=== PATIENT | male | born 1975 | race African-American/Black ===

== ENCOUNTER 2021-09-28 10:55 | Emergency (ER) | payer MEDICAID ==
[~2021-09-28] VITALS: Ht 180.3 cm; Wt 101.0 kg
[2021-09-28] MEDS ORDERED: ASPIRIN 81MG TABLET PO ONE (11:15)
[2021-09-28] MEDS ORDERED: SODIUM CHLORIDE 0.9% 1,000 ML IV ONE (11:15)
[2021-09-28 11:53] LABS: BASOPHILS % 0.7 % (0.0-2.0); EOSINOPHILS % 1.9 % (0.0-5.0); HEMATOCRIT. 46.6 % (42.0-52.0); HEMOGLOBIN. 15.5 g/dL (14.0-18.0); LYMPHOCYTES % 33.4 % (20.0-50.0); MEAN CORPUSCULAR HEMOGLOBIN 28.3 pg (28.0-32.0); MEAN CORPUSCULAR VOLUME 85.5 fL (80.0-94.0); MEAN PLATELET VOLUME 10.3 fl (7.4-10.4); PLATELET 266 x1000/uL (130-400); RED BLOOD CELL COUNT 5.45 mill/uL (4.7-6.1); RED CELL DISTRIBUTION WIDTH 13.2 % (11.6-14.6)
[2021-09-28 11:57] LABS: CHLORIDE 108 mEq/L (98-107)
[2021-09-28 12:27] LABS: ETHANOL BLOOD < 10 mg/dL
[2021-09-28] MEDS ORDERED: DILTIAZEM HCL 5MG/ML 5ML VIAL IV ONE (12:30)
[2021-09-28 12:45] LABS: *AMPHETAMINES SCREEN URINE NEGATIVE (NEGATIVE); *BARBITURATES SCREEN URINE NEGATIVE (NEGATIVE); *BENZODIAZEPINES SCREEN URINE NEGATIVE (NEGATIVE); *COCAINE SCREEN URINE NEGATIVE (NEGATIVE); METHADONE URINE SCREEN NEGATIVE (NEGATIVE); OPIATES URINE SCREEN NEGATIVE (NEGATIVE)
[2021-09-28 12:46] LABS: CANNABINOID URINE SCREEN NEGATIVE (NEGATIVE); PHENCYCLIDINE URINE SCREEN NEGATIVE (NEGATIVE)
[2021-09-28] MEDS ORDERED: IOHEXOL-350 100 ML BOTTLE ONE (13:28)
[2021-09-28] MEDS ORDERED: DILTIAZEM HCL 30MG TABLET PO ONE (13:45)
[2021-09-28] MEDS ORDERED: APIX2.5T MT (15:33)
[2021-09-28 16:04] VITALS: BP 132/94
== END 2021-09-28 16:20 | disposition home or self-care (01) ==
LOC: ER 10:55
DX: I48.20 Chronic atrial fibrillation, unspecified (principal); R00.2 Palpitations; I10 Essential (primary) hypertension; Z20.822 Contact with and (suspected) exposure to COVID-19
CPT/HCPCS: 36415; 71045; 71275; 80053; 80305; 80307; 80320; 80329; 82962; 83605; 83690; 83880; 84443; 84484; 85025; 85379; 87426; 93005; 96361; 96374; 99285; J3490; J7030; Q9967; G0480